=== PATIENT | female | born 1960 | race Caucasian/White ===

== ENCOUNTER 2022-02-15 08:35 | Emergency (ER) | payer BC ==
[~2022-02-15] VITALS: Ht 162.6 cm; Wt 117.0 kg
[~2022-02-15 08:35] MED LIST: TRAMADOL HCL50 MG PO
[2022-02-15 08:49] VITALS: BP 213/95
[2022-02-15] MEDS ORDERED: OMEPRAZOLE10 MG PO (08:56)
[2022-02-15 09:04] VITALS: BP 188/91
[2022-02-15 09:18] LABS: IMMATURE GRANULOCYTES 0.1 % (0.0-5.0); MEAN CELL VOLUME 87.2 fL CALC (80.0-100.0); MEAN CORPUSCULAR HGB CONC 33.3 g/dL CAL (32.0-36.0); NEUT# 4.97 thou/uL (2.00-7.15); RED BLOOD COUNT 5.07 mill/uL (4.20-5.60); RED CELL DISTRI WIDTH 14.4 % (11.5-15.5)
[2022-02-15 09:19] LABS: HEMATOCRIT 44.2 % (37.0-47.0); HEMOGLOBIN 14.7 g/dl (12.0-16.0)
[2022-02-15 09:20] LABS: ALBUMIN 4.5 g/dL (3.2-5.0); ANION GAP 12 (6-22 (CALC)); BUN 10 mg/dL (8-23); BUN/CREATININE RATIO 13 (12-20 (CALC)); CARBON DIOXIDE 28 mmol/l (22-30); CHLORIDE 106 mmol/l (95-108); CREATININE 0.8 mg/dL (0.5-1.0); GFR FOR AFR.AMER. > 60 ML/MIN (>=60 (CALC)); GFR OTHER RACES > 60 ML/MIN (>=60 (CALC)); LIPASE 44 u/l (23-300); SODIUM 142 mmol/l (137-146); TOTAL PROTEIN 7.8 g/dL (6.3-8.2)
[2022-02-15 09:32] VITALS: BP 194/85
[2022-02-15 09:33] LABS: ALKALINE PHOSPHATASE 80 u/l (38-126); BILIRUBIN, TOTAL 1.6 mg/dL (0.0-1.4); SGOT/AST 28 u/l (9-36)
[2022-02-15 10:32] LABS: URINE BILIRUBIN - DIPSTICK NEGATIVE (NEGATIVE); URINE BLOOD DIPSTICK NEGATIVE (NEGATIVE); URINE COLOR YELLOW; URINE GLUCOSE - DIPSTICK NEGATIVE (NEGATIVE); URINE KETONE NEGATIVE (NEGATIVE); URINE PH 6.5 (4.5-8.0); URINE PROTEIN - DIPSTICK NEGATIVE (NEG-TRACE); URINE UROBILINOGEN - DIPSTICK 0.2 E.U./dL (0.2)
[2022-02-15 10:38] LABS: URINE LEUK ESTERASE SMALL (NEGATIVE); URINE NITRITE - DIPSTICK NEGATIVE (Negative)
[2022-02-15 10:53] LABS: URINE BACTERIA MODERATE hpf; URINE SQUAMOUS EPITHELIAL CELL MANY EPI/hpf (0-FEW)
[2022-02-15 12:13] VITALS: BP 215/83
[2022-02-15 12:18] VITALS: BP 222/85
[2022-02-15] MEDS ORDERED: MOTRIN800 MG PO (12:52)
== END 2022-02-15 13:43 | disposition home or self-care (01) | DRG 392 ==
LOC: ED 08:35
PROVIDERS: Emergency Medicine
DX: R19.03 Right lower quadrant abdominal swelling, mass and lump (principal); K21.9 Gastro-esophageal reflux disease without esophagitis
CPT/HCPCS: Q9967